=== PATIENT | male | born 1965 | race Caucasian/White ===

== ENCOUNTER 2021-08-19 20:01 | Emergency (ER) | payer OTHER ==
[2021-08-19] MEDS ORDERED: CYCLOBENZAPRINE10 MG PO (21:57)
[2021-08-19] MEDS ORDERED: CEPHALEXIN500 MG PO (21:57)
[2021-08-19] MEDS ORDERED: MUPIROCIN22 GM TP (21:57)
== END 2021-08-19 22:05 | disposition home or self-care (01) ==
LOC: ER1 20:01
DX: S00.531A Contusion of lip, initial encounter (principal); S30.811A Abrasion of abdominal wall, initial encounter; S50.312A Abrasion of left elbow, initial encounter; S50.311A Abrasion of right elbow, initial encounter; S40.212A Abrasion of left shoulder, initial encounter; S40.812A Abrasion of left upper arm, initial encounter; I10 Essential (primary) hypertension; K21.9 Gastro-esophageal reflux disease without esophagitis; V29.9XXA Motorcycle rider (driver) (passenger) injured in unspecified traffic accident, initial encounter; Y92.410 Unspecified street and highway as the place of occurrence of the external cause
CPT/HCPCS: 73030; 99283